=== PATIENT | male | born 1960 | race African-American/Black ===

== ENCOUNTER 2017-03-06 18:19 | Emergency (ER) | payer OTHER ==
[~2017-03-06] VITALS: Ht 170.2 cm; Wt 88.6 kg
[~2017-03-06 18:19] MED LIST: CYCL10 PO; HYDR-3971 PO; IBUP-1547 PO; OMEP20 PO; QUET100T PO
[2017-03-06] MEDS ORDERED: HYDR25TA PO (18:34)
[2017-03-06] MEDS ORDERED: ASPI-1093 PO (18:34)
[2017-03-06] MEDS ORDERED: LOSA100T29 PO (18:34)
[2017-03-06] MEDS: SULFAMETHOX/TRIMETH DS 800-160 MG/TABLET PO ONE (19:32)
[2017-03-06] MEDS: HYDROCODONE/ACETAMINOPHEN 5-325 MG TABLET PO ONE (19:32)
[2017-03-06 20:19] VITALS: BP 144/86
== END 2017-03-06 20:22 | disposition home or self-care (01) ==
LOC: EMS 18:22
DX: L84 Corns and callosities (principal); L03.115 Cellulitis of right lower limb
CPT/HCPCS: 99283

== ENCOUNTER 2017-04-15 21:32 | Emergency (ER) | payer OTHER ==
[~2017-04-15] VITALS: Ht 170.2 cm; Wt 90.0 kg
[~2017-04-15 21:32] MED LIST changes: +ASPI-1093 PO; +HYDR25TA PO; +LOSA100T29 PO
[2017-04-15 21:51] VITALS: BP 141/87
[2017-04-15] MEDS ORDERED: AMLO5TAB66 PO (22:04)
[2017-04-15] MEDS ORDERED: GABA-531 PO (22:04)
[2017-04-15 22:20] LABS: ADD UA MICROSCOPIC NO; APPEARANCE,URINE CLEAR (CLEAR); GLUCOSE, URINE (UA) NEGATIVE (NEGATIVE); KETONES,URINE NEGATIVE (NEGATIVE); LEUKOCYTE ESTERASE ,URINE NEGATIVE (NEGATIVE); OCCULT BLOOD,URINE NEGATIVE (NEGATIVE); PROTEIN,URINE NEGATIVE (NEGATIVE)
[2017-04-15] MEDS ORDERED: LEVOFLOXACIN 500 MG TABLET PO ONE (22:45)
[2017-04-18 06:07] LABS: GC DNA N.A. AMPLIFY Negative (Negative)
== END 2017-04-15 22:51 | disposition home or self-care (01) ==
LOC: EMS 21:34
DX: N34.2 Other urethritis (principal); I10 Essential (primary) hypertension; F17.210 Nicotine dependence, cigarettes, uncomplicated
CPT/HCPCS: 87491; 87591; 99284

== ENCOUNTER 2017-07-26 11:20 | Emergency (ER) | payer OTHER ==
[~2017-07-26] VITALS: Ht 175.3 cm; Wt 81.5 kg
[~2017-07-26 11:20] MED LIST changes: +AMLO5TAB66 PO; -ASPI-1093 PO; +ASPI-1182 PO; -CYCL10 PO; +GABA-531 PO; -HYDR-3971 PO; -HYDR25TA PO; -IBUP-1547 PO; +IBUP-2071 PO; -LOSA100T29 PO; -QUET100T PO
[2017-07-26] MEDS ORDERED: HYDR-309 PO (11:43)
[2017-07-26] MEDS ORDERED: [UNRECOGNIZED DRUG - CODE] TP (11:47)
[2017-07-26 12:42] VITALS: BP 149/91
== END 2017-07-26 13:33 | disposition home or self-care (01) ==
LOC: EMS 11:21
DX: L60.8 Other nail disorders (principal); I10 Essential (primary) hypertension; F17.210 Nicotine dependence, cigarettes, uncomplicated; Z79.82 Long term (current) use of aspirin
CPT/HCPCS: 99281

== ENCOUNTER 2018-07-14 12:48 | Emergency (ER) | payer OTHER ==
[~2018-07-14] VITALS: Ht 170.2 cm; Wt 86.4 kg
[~2018-07-14 12:48] MED LIST changes: -GABA-531 PO; +HYDR-309 PO; +[UNRECOGNIZED DRUG - CODE] TP
[2018-07-14 14:04] VITALS: BP 130/89
== END 2018-07-14 14:07 | disposition home or self-care (01) ==
LOC: EMS 12:49
DX: Z11.3 Encounter for screening for infections with a predominantly sexual mode of transmission (principal); I10 Essential (primary) hypertension; F17.210 Nicotine dependence, cigarettes, uncomplicated; Z79.82 Long term (current) use of aspirin; Z79.899 Other long term (current) drug therapy
CPT/HCPCS: 99281

== ENCOUNTER 2018-08-15 08:14 | Emergency (ER) | payer OTHER ==
[~2018-08-15] VITALS: Ht 170.2 cm; Wt 0.9 kg
[~2018-08-15 08:14] MED LIST changes: -[UNRECOGNIZED DRUG - CODE] TP
[2018-08-15 08:15] VITALS: BP 143/89
== END 2018-08-15 09:17 | disposition left against medical advice (07) ==
LOC: EMS 08:15
DX: A54.9 Gonococcal infection, unspecified (principal); I10 Essential (primary) hypertension; F17.210 Nicotine dependence, cigarettes, uncomplicated; Z53.21 Procedure and treatment not carried out due to patient leaving prior to being seen by health care provider

== ENCOUNTER 2019-11-14 04:43 | Emergency (ER) | payer OTHER ==
[~2019-11-14] VITALS: Ht 170.2 cm; Wt 90.9 kg
[~2019-11-14 04:43] MED LIST changes: +ASPI-1111 PO; -ASPI-1182 PO; -HYDR-309 PO; +HYDR-4069 PO
[2019-11-14] MEDS ORDERED: HYDR-1475 PO (05:01)
[2019-11-14] MEDS ORDERED: QUET200T PO (05:01)
[2019-11-14] MEDS ORDERED: ATOR10TA84 PO (05:01)
[2019-11-14] MEDS ORDERED: LOSA-88 PO (05:01)
[2019-11-14 05:56] LABS: APPEARANCE,URINE CLEAR (CLEAR); BILIRUBIN,URINE NEGATIVE (NEGATIVE); GLUCOSE, URINE (UA) NEGATIVE (NEGATIVE); KETONES,URINE NEGATIVE (NEGATIVE); LEUKOCYTE ESTERASE ,URINE NEGATIVE (NEGATIVE); NITRATE,URINE NEGATIVE (NEGATIVE); OCCULT BLOOD,URINE NEGATIVE (NEGATIVE); PH,URINE 6.5 (5.0-8.0); PROTEIN,URINE NEGATIVE (NEGATIVE); UROBILINOGEN,URINE 0.2 mg/dL (<=1.0)
[2019-11-14] MEDS ORDERED: AZITHROMYCIN 250 MG TABLET PO ONE (06:15)
[2019-11-14] MEDS ORDERED: CefTRIAXone SODIUM 1 GM/VIAL IM ONE (06:15)
[2019-11-14 06:30] VITALS: BP 152/96
[2019-11-14] MEDS ORDERED: LIDOCAINE/PF 1% 2 ML VIAL IM ONE (06:30)
== END 2019-11-14 06:51 | disposition home or self-care (01) ==
LOC: EMS 04:43
DX: A64 Unspecified sexually transmitted disease (principal); I10 Essential (primary) hypertension; F17.210 Nicotine dependence, cigarettes, uncomplicated; Z79.899 Other long term (current) drug therapy; Z98.890 Other specified postprocedural states
CPT/HCPCS: 81003; 87491; 87591; 96372; 99283; J0696; J3490

== ENCOUNTER 2020-03-17 12:54 | Emergency (ER) | payer OTHER ==
[~2020-03-17] VITALS: Ht 170.2 cm; Wt 90.9 kg
[~2020-03-17 12:54] MED LIST changes: +ATOR10TA84 PO; +HYDR-1475 PO; +LOSA50TA37 PO; +QUET200T PO
[2020-03-17 12:55] VITALS: BP 157/89
== END 2020-03-17 13:02 | disposition left against medical advice (07) ==
LOC: EMS 12:57
DX: I10 Essential (primary) hypertension (principal); Z53.21 Procedure and treatment not carried out due to patient leaving prior to being seen by health care provider

== ENCOUNTER 2021-04-04 02:13 | Emergency (ER) | payer OTHER ==
[~2021-04-04] VITALS: Ht 170.2 cm; Wt 79.5 kg
[~2021-04-04 02:13] MED LIST changes: -ASPI-1111 PO; +ASPI-1444 PO; -HYDR-1475 PO; +HYDR25TA2 PO
[2021-04-04 02:56] VITALS: BP 126/69
== END 2021-04-04 03:22 | disposition home or self-care (01) ==
LOC: EMS 02:14
DX: K14.6 Glossodynia (principal); I10 Essential (primary) hypertension; F17.210 Nicotine dependence, cigarettes, uncomplicated
CPT/HCPCS: 99281; 99283